=== PATIENT | female | born 1975 | race Caucasian/White ===

== ENCOUNTER → 2018-02-22 | Outpatient (CLI) | payer OTHER ==
[~2018-02-22] VITALS: Ht 167.6 cm; Wt 104.3 kg
[~2018-02-22] MED LIST: ALEVE220 MG PO; IBUPROFEN 800800 M1 PO; LEXAPRO 10 MG T10 M1 PO; OMEPRAZOLE40 MG PO; PRINIVIL10 MG PO; UNICOMPLEX M TA1 TA1 PO; ZANAFLEX4 MG PO
--- NOTE | ~2018-02-22 | HPC ---
[facility] [place] [address] PAIN MANAGEMENT CONSULTATION Name: GERTRUDIS OTERO Room #: REG [facility].#: [id number] Admission: 02/22/18 Attend Phys: Nahid Cool MD Discharge: Date of : 73 Report #: [id number] THIS REPORT FOR: //name// CC: Octavio Cool DATE OF SERVICE: 02/22/2018 CHIEF COMPLAINT: Acute low back pain with radiation in the right L5-S1 distribution. HISTORY OF PRESENT ILLNESS: The patient is a pleasant 42-year-old who has had chronic back pain off and on over the course of the last several years. She has had a new episode of pain consistent with radiculopathy radiating into the right leg. She attempted with some exercise and used some Zanaflex with limited improvement. Ultimately, the pain became so severe that she was allowed to have an MRI, which demonstrated an acutely herniated disk at L5-S1. Her symptoms are primarily right-sided; however, the disk appears to be a bit more to the left. This is not completely atypical and we have seen this on several occasions in the past. She has responded to epidural injection I think in order to improve her mobility and exercise capacity. At this stage, an epidural injection would be an appropriate step. MEDICATIONS: Citalopram, omeprazole, multivitamins, naproxen and ibuprofen are both taken intermittently and were discussed, lisinopril and tizanidine. ALLERGIES: None. PAST MEDICAL HISTORY: Significant for recent vaginal hysterectomy, bladder lift and an AP repair in 09/[address] Enrrique Dia. She has had a previous lithotripsy, tonsillectomy and adenoidectomy. SOCIAL HISTORY: She is . She is currently using e-cigarettes. She was counseled. She denies use of alcohol. PHYSICAL EXAMINATION: She has lost 50 pounds and is now down to 230. Her BMI is 37.1. She and her have dieted together and have used exercises, modalities for this weight loss. Blood pressure 109/64, heart rate 60, respirations 16. She moves from sitting to standing position, ambulates without antalgic features. Range of motion of the lumbar spine is adequate and flexion increases pain in the hip and leg and with extension. Straight leg raising reproduces some mild symptoms of tightness and stretching in the right, left is negative. Deep tendon reflexes are 2+ at knee. She has an asymmetry with absent ankle jerk reflex on the right in comparison to the left. Sensation diminished with a tingling sensation in the right L5-S1 distribution. [address] [address] PAIN MANAGEMENT CONSULTATION Name: GERTRUDIS OTERO Room #: [facility].#: [id number] Admission: 02/22/18 Attend Phys: Nahid Cool MD Discharge: Date of : 73 Report #: [id number] MRI shows evidence of the L5-S1 herniated disk. IMPRESSION: Lumbar radiculopathy, L5-S1 distribution on the right. Herniated nucleus pulposus at L5-S1 with left-sided involvement noted on the MRI. PLAN: I think it is appropriate to perform an epidural steroid injection under fluoroscopic guidance. We will seek preauthorization and try and get this procedure done within the next couple of days given the difficulty with weather in the [place]. At this time, it would be appropriate to try and get the injection today and we are making efforts to get preauthorization while here in the office. By: 1412 1438 Nahid Cool MD /nt
[2018-02-22 13:14] VITALS: BP 109/64
== END ==
LOC: PAIN 00:30
DX: M54.16 Radiculopathy, lumbar region (principal)

== ENCOUNTER → 2018-02-25 | Outpatient (CLI) | payer OTHER ==
[~2018-02-25] VITALS: Ht 167.6 cm; Wt 106.9 kg
[~2018-02-25] MED LIST changes: +KEFLEX500 M1 PO
--- NOTE | ~2018-02-25 | HPC ---
[address] [address] PAIN MANAGEMENT CONSULTATION Name: GERTRUDIS OTERO [id number] Admission: 02/25/18 Attend Phys: Nahid Cool MD Discharge: Date of : 73 Report #: [id number] THIS REPORT FOR: //name// CC: Octavio Cool DATE OF SERVICE: 02/25/2018 Followup visits to perform lumbar epidural injection. The patient was seen in the pain clinic on 02/22/2018. She has a herniated nucleus pulposus at L5-S1 with lumbar radiculopathy following an L5-S1 distribution on the right. We attempted to preauthorize her for an epidural injection on her visit of 02/22/2018, but were unable to do so. Unfortunately, the patient had to leave the clinic and returned again today for the injection now that we have received insurance go ahead. Inefficient but we will get it done today. She continues to have the similar presentation as she did 3 days ago. There have been no significant changes. She has had some burning on urination, but is afebrile. Prophylactically, she was started on an antibiotic. I do not believe this is a contraindication proceeding with her injection today, particularly in light of her delay of 3 days ago. IMPRESSION: Chronic low back pain with recurrence of radiculopathy following a right L5-S1 distribution: Herniated nucleus pulposus, L5-S1. PROCEDURE: Epidural steroid injection under fluoroscopic guidance. PROCEDURE NOTE: After both written and informed consent to include risk of spinal cord damage, increased pain, weakness and dural puncture, the patient was taken to the fluoroscopy suite, placed in the prone position. After sterile prep and drape, a skin wheal with lidocaine was raised. A 22-gauge epidural Tuohy needle was inserted in the midline at L5-S1 with good loss to resistance. Negative aspiration for cerebrospinal fluid or blood was noted. Then 1 mL of Omnipaque under biplanar fluoroscopy showed good spread within the epidural space. This was followed with 80 mg of triamcinolone plus 3 mL of 0.5% lidocaine was then injected to flush the needle; it was removed. The patient was monitored for an appropriate period of time and discharged in good and stable condition. There were no complications. She tolerated the procedure well. <ELECTRONICALLY SIGNED> By: Nahid Cool MD 02/25/18 1538 [id number] Nahid Cool MD /nt
[2018-02-25 11:04] VITALS: BP 114/78
== END | disposition home or self-care (01) ==
LOC: PAIN 09:24
DX: M51.16 Intervertebral disc disorders with radiculopathy, lumbar region (principal); G89.29 Other chronic pain; F17.210 Nicotine dependence, cigarettes, uncomplicated; Z91.040 Latex allergy status; Z79.899 Other long term (current) drug therapy

== ENCOUNTER → 2018-03-18 | Outpatient (CLI) | payer OTHER ==
[~2018-03-18] VITALS: Ht 167.6 cm; Wt 102.5 kg
--- NOTE | ~2018-03-18 | HPC ---
[facility] [place] [address] PAIN MANAGEMENT CONSULTATION Name: GERTRUDIS OTERO Room #: REG [facility].#: [id number] Admission: 03/18/18 Attend Phys: Nahid Cool MD Discharge: Date of : 73 Report #: [id number] THIS REPORT FOR: //name// CC: Octavio Cool DATE OF SERVICE: 03/18/2018 Followup visit for chronic low back pain with radiculopathy. The patient returns to pain clinic today with an excellent response to her epidural injection. She reports that the injection at L5-S1 has given her "push start" in her exercise program and her pain is down to a 4. Relief is over 50%. Pain in her low back is less and the pain in her right leg to her toes has significantly improved as well. She reports less weakness and better able to perform therapy. She has had no falls. Given her very favorable response to epidural injection, I think a second injection would be warranted given the fact that she still has pain that limits her activity after a certain period of time. Hopefully, a second injection would be all that would be necessary. She would like to perform this before the end of the holiday season. PHYSICAL EXAMINATION: She is pleasant, alert and oriented. No signs of overmedication, depression or anxiety. She moves from sitting to standing position. Still has some slight antalgic features to her gait. Her blood pressure 120/77, heart rate 81, respirations 16, BMI 36.5. Examination of the right leg reveals positive symptoms in the supine position with straight leg raising. IMPRESSION: Lumbar radiculopathy secondary to herniated nucleus pulposus, L5-S1. RECOMMENDATIONS: Given her excellent response I think we may be able to continue providing her with relief and prevent the need for surgery if she continues to make progress. We have asked for a repeat epidural injection to be preauthorized for her to this goal and plan to have her back in the clinic in the next few days. By: 1532 [id number] Nahid Cool MD /nt
[2018-03-18 10:51] VITALS: BP 120/77
== END ==
LOC: PAIN 08:43
DX: M54.16 Radiculopathy, lumbar region (principal); Z79.899 Other long term (current) drug therapy

== ENCOUNTER → 2018-03-26 | Outpatient (CLI) | payer OTHER ==
[~2018-03-26] VITALS: Ht 167.6 cm; Wt 102.2 kg
[2018-03-26 10:44] VITALS: BP 108/71
--- NOTE | 2018-03-26 10:59 | NUR ---
Pain Clinic Assessment: 1. History of Osteoarthritis: Not Applicable History of Rheumatoid Arthritis: Not Applicable 2. Height: 5 ft. 6 in. 167.6 cm. Weight: 225.4 lb. oz. 102.241 kg. Patient's BMI: 36.4 3. Vital Signs: BP: 108/71 Pulse: 100 Resp: 14 Temp: 02 Sat: 97 ECG Mon: 4. Pain Intensity: 5 5. Fall Risk: Dizziness: N Needs help standing or walking: N Fallen in the last 3 months: N Fall risk comments: 6. Patient on Blood Thinner: None 7. History of Hypertension: Y 8. Opioid Therapy greater than 6 weeks: N Opiate Contract Signed: 9. Risk Assessment Tool Provided: MOD-5 10. Functional Assessment Tool: 11. Recreational Drug Use: Never Drug Type: Tobacco Use: Current Every Day Smoker Tobacco Type: Amount or Packs/day: How Many Years: Alcohol Use: Yes Frequency: Quant:
--- NOTE | 2018-03-31 11:18 | HPC ---
[facility] [place] [address] PAIN MANAGEMENT CONSULTATION Name: GERTRUDIS OTERO Room #: REG [facility].#: [id number] Admission: 03/26/18 Attend Phys: Nahid Cool MD Discharge: Date of : 73 Report #: [id number] THIS REPORT FOR: //name// CC: Octavio Cool DATE OF SERVICE: 03/26/2018 Followup visit for herniated nucleus pulposus, L5-S1 to the right with right L5-S1 lumbar radiculopathy. The patient was seen just 8 days ago for followup. She had had over 50% relief from a single epidural injection performed on 02/25/2018. Given her ongoing pain and the difficulty she has in pushing through it for exercise necessary for weight loss, we have elected to repeat another injection today hoping for further improvement. I spent additional time today with the model describing her procedure and what we hoped would happen with a herniated disk to provide relief over time. She would like to avoid surgery. PHYSICAL EXAMINATION: Unchanged from 1 week ago. IMPRESSION: Lumbar radiculopathy secondary to herniated nucleus pulposus, L5-S1. Right L5-S1 radicular symptoms. PROCEDURE: L5-S1 right paramedian epidural steroid injection under fluoroscopic guidance. DESCRIPTION OF PROCEDURE: She was taken to the fluoroscopic suite and placed prone. The skin was prepped with ChloraPrep. Skin anesthetized over the L5-S1 interspace. A 20-gauge Tuohy epidural needle 4-inch was advanced into the epidural space on the first attempt using loss of resistance. One mL of Isovue was injected. Good spread of dye observed into the epidural space, followed by 3 mL of 0.5% lidocaine mixed with 80 mg of triamcinolone. She tolerated the procedure well, was observed for 45 minutes and discharged with a followup plan in 1-2 months. If she continues to do well, I have told her I will cancel her upcoming appointment. <ELECTRONICALLY SIGNED> By: Nahid Cool MD 03/31/18 1118 [id number] [id number] Nahid Cool MD /nt
== END | disposition home or self-care (01) ==
LOC: PAIN 08:10
DX: M51.16 Intervertebral disc disorders with radiculopathy, lumbar region (principal); F17.210 Nicotine dependence, cigarettes, uncomplicated; Z91.040 Latex allergy status; Z79.899 Other long term (current) drug therapy

== ENCOUNTER → 2019-03-03 | Outpatient (CLI) | payer OTHER ==
[~2019-03-03] VITALS: Ht 167.6 cm; Wt 110.3 kg
[~2019-03-03] MED LIST changes: +ARMOUR THYROID15 M1 PO; +VYVANSE50 MG PO
--- NOTE | ~2019-03-03 | HPC ---
[facility] [place] [address] PAIN MANAGEMENT CONSULTATION Name: GERTRUDIS OTERO Room #: REG [facility].#: [id number] Admission: 03/03/19 Attend Phys: Nahid Cool MD Discharge: Date of : 73 Report #: [id number] THIS REPORT FOR: //name// CC: DEYSI AGARWAL Physician staff Nahid Cool DATE OF SERVICE: 03/03/2019 CHIEF COMPLAINT: Low back pain with radiation into both legs. HISTORY: The patient is a pleasant 43-year-old who I have provided with epidural injections on several occasions. She has responded favorably to these injections, most recent was 1 year ago. She was doing well for almost 6 months. In the summer when she was having a garage sale and doing yard work, the pain began to return, has gradually increased to the point now where she would like an injection. Her pain intensity is a 5-6/10. She describes it as worse with walking, standing and sitting. It is associated with some tingling and numbness of the legs. MEDICATIONS: Lisinopril, Thyroid, Lexapro, omeprazole, multivitamins, naproxen, ibuprofen, lisinopril, tizanidine. ALLERGIES: LATEX. PAST MEDICAL HISTORY: Positive for peptic ulcer. This is particularly worrisome given the fact that she is taking 2400 mg of ibuprofen daily. She was cautioned. She also has high blood pressure history and kidney stones. I would prefer to see her off of an NSAID. PHYSICAL EXAMINATION: GENERAL: She is pleasant 43-year-old female, alert and oriented. VITAL SIGNS: Blood pressure 112/70, heart rate 73, respirations 16. She has a BMI of 39.3. She moves independently from sitting to standing position. Gait is nonantalgic. She has tenderness across her low back. Positive straight leg raising bilaterally. A distant MRI shows an L5-S1 left disk space focal herniation. She has carefully continued to avoid activities to stress this area and has avoided surgery. We talked about the importance of rehabilitative approach including daily exercise and walking program, which I have reinforced. I also talked about the importance of cessation of tobacco. She continues to smoke e-cigarettes 3 mg per day. [address] [address] PAIN MANAGEMENT CONSULTATION Name: GERTRUDIS OTERO Room #: REG [facility].#: [id number] Admission: 03/03/19 Attend Phys: Nahid Cool MD Discharge: Date of : 73 Report #: [id number] IMPRESSION: Chronic low back pain with radiculopathy. RECOMMENDATIONS: Epidural steroid injection under fluoroscopic guidance, L5-S1 given the previous response of 80% improvement for over 5 months. Preauthorization will be sought before we proceed with the injection. She is an excellent candidate. By: 1323 [id number] Nahid Cool MD /nt
[2019-03-03 10:28] VITALS: BP 112/70
--- NOTE | 2019-03-03 10:50 | NUR ---
Pain Clinic Assessment: 1. History of Osteoarthritis: Not Applicable History of Rheumatoid Arthritis: Not Applicable 2. Height: 5 ft. 6 in. 167.6 cm. Weight: 243.2 lb. oz. 110.315 kg. Patient's BMI: 39.3 3. Vital Signs: BP: 112/70 Pulse: 73 Resp: 16 Temp: 02 Sat: 98 ECG Mon: 4. Pain Intensity: 5-6 5. Fall Risk: Dizziness: N Needs help standing or walking: N Fallen in the last 3 months: Y Fall risk comments: 6. Patient on Blood Thinner: None 7. History of Hypertension: Y 8. Opioid Therapy greater than 6 weeks: N Opiate Contract Signed: 9. Risk Assessment Tool Provided: MODERATE 08/03 10. Functional Assessment Tool: 11. Recreational Drug Use: Never Drug Type: Tobacco Use: Current Every Day Smoker Tobacco Type: E-Cigarettes Amount or Packs/day: 3 MG/DAY How Many Years: Alcohol Use: Yes Frequency: Special Occasions Quant: 1
== END ==
LOC: PAIN 06:51
DX: M54.16 Radiculopathy, lumbar region (principal); Z79.899 Other long term (current) drug therapy; Z91.040 Latex allergy status

== ENCOUNTER → 2019-03-07 | Outpatient (CLI) | payer OTHER ==
[~2019-03-07] VITALS: Ht 167.6 cm; Wt 109.9 kg
--- NOTE | ~2019-03-07 | P ---
[facility] [place] [address] PROCEDURE REPORT Name: GERTRUDIS OTERO Room #: REG [facility].#: [id number] Admission: 03/07/19 Attend Phys: Nahid Cool MD Discharge: Date of : 73 Report #: [id number] THIS REPORT FOR: //name// CC: DEYSI AGARWAL Physician staff Nahid Cool DATE OF SERVICE: 03/07/2019 DIAGNOSES: Low back pain with bilateral radiculopathy. PROCEDURE: Lumbar epidural steroid injection in L5-S1 under fluoroscopic guidance. INDICATIONS FOR PROCEDURE: The patient has recurring and longstanding low back pain with radiculopathy and has responded very favorably to epidural injection. She was last seen in preparation for the injection on 03/03/2019. Please refer to that dictation. There have been no changes in her condition or health history since that visit. We will proceed today. Informed consent provided and signed prior to the procedure. DETAILS OF PROCEDURE: The patient was taken to fluoroscopic suite, placed prone, skin prepped with ChloraPrep. Skin anesthetized over the L5-S1 interspace to the right of midline. A 20-gauge Tuohy epidural needle advanced on the first attempt in the epidural space with loss of resistance. There was no blood nor CSF aspirated and 1 mL of Omnipaque was injected to demonstrate an excellent epidurogram, it was then followed by 3 mL of 0.5% lidocaine mixed with 80 mg of triamcinolone. She tolerated the procedure well and there were no complications. She was taken to recovery room in good condition and followup will be as needed. By: 0921 1412 Nahid Cool MD /nt
[2019-03-07 08:55] VITALS: BP 104/71
--- NOTE | 2019-03-07 09:03 | NUR ---
Pain Clinic Assessment: 1. History of Osteoarthritis: B/L KNEES B/L HANDS B/L ANKLES History of Rheumatoid Arthritis: Not Applicable 2. Height: 5 ft. 6 in. 167.6 cm. Weight: 242.2 lb. oz. 109.861 kg. Patient's BMI: 39.1 3. Vital Signs: BP: 104/71 Pulse: 90 Resp: 16 Temp: 02 Sat: 98 ECG Mon: 4. Pain Intensity: 6-7 TODAY 5. Fall Risk: Dizziness: N Needs help standing or walking: N Fallen in the last 3 months: N Fall risk comments: 6. Patient on Blood Thinner: None 7. History of Hypertension: Y 8. Opioid Therapy greater than 6 weeks: N Opiate Contract Signed: 9. Risk Assessment Tool Provided: MODERATE 08/03 10. Functional Assessment Tool: / 11. Recreational Drug Use: Never Drug Type: Tobacco Use: Current Every Day Smoker Tobacco Type: E-Cigarettes Amount or Packs/day: How Many Years: Alcohol Use: Yes Frequency: Special Occasions Quant:
== END | disposition home or self-care (01) ==
LOC: PAIN 06:44
DX: M54.16 Radiculopathy, lumbar region (principal); F17.210 Nicotine dependence, cigarettes, uncomplicated; Z88.8 Allergy status to other drugs, medicaments and biological substances; Z91.040 Latex allergy status; Z79.899 Other long term (current) drug therapy

== ENCOUNTER → 2019-04-04 | Outpatient (CLI) | payer OTHER ==
[~2019-04-04] VITALS: Ht 167.6 cm; Wt 108.6 kg
[~2019-04-04] MED LIST changes: +PROGESTERONE100 MG PO
--- NOTE | ~2019-04-04 | HPC ---
[facility] [place] [address] [place] [address] PAIN MANAGEMENT CONSULTATION Name: GERTRUDIS OTERO Room #: REG [facility].#: [id number] Admission: 04/04/19 Attend Phys: Nahid Cool MD Discharge: Date of : 73 Report #: [id number] THIS REPORT FOR: //name// CC: Dr. Kareem AGARWAL Physician staff Nahid Cool DATE OF SERVICE: 04/04/2019 Followup visit for lumbar radiculopathy. I saw the patient last about 1 month ago for low back pain with bilateral radiculopathy. She received an epidural injection with 50% improvement, which has been sustained over the course of the last month. She would like another injection. Pain is in her left buttock. She has been much more active since her last injection and would like to increase her activity to help with weight loss. Her BMI is now up to 38.7. She complains of numbness in her right leg all the way to the foot following an L5 dermatomal distribution. She also has some pain down the posterior aspect of her leg following an S1. PHYSICAL EXAMINATION: VITAL SIGNS: She is 5 feet 6 inches, 239 pounds with a BMI of 38.7. Blood pressure 111/76, heart rate 98, respirations 16, O2 sat 98. MUSCULOSKELETAL: She moves independently from sitting to standing position, ambulates without difficulty. There is a positive straight leg raising on the right and left. It is worse on the right with pain radiating all the way to the foot. Strength is normal. No loss of sensation at this time, although she complains of intermittent numbness in the right foot. She does have an asymmetrical reflex exam. All reflexes are 1 to 2+ except for the S1 reflex at the right ankle, which is barely positive. This would suggest an S1 radiculopathy. IMPRESSION: Lumbar radiculopathy, L5-S1. RECOMMENDATIONS: Repeat L5-S1 epidural injection under fluoroscopic guidance. We will seek preauthorization for the injection and see her back in the pain clinic as soon as possible. By: [id number] [id number] Nahid Cool MD /nt
[2019-04-04 14:02] VITALS: BP 111/76
--- NOTE | 2019-04-04 14:16 | NUR ---
Pain Clinic Assessment: 1. History of Osteoarthritis: B/L KNEES B/L HANDS B/L ANKLES History of Rheumatoid Arthritis: DENIES 2. Height: 5 ft. 6 in. 167.6 cm. Weight: 239.4 lb. oz. 108.591 kg. Patient's BMI: 38.7 3. Vital Signs: BP: 111/76 Pulse: 98 Resp: 16 Temp: 02 Sat: 98 ECG Mon: 4. Pain Intensity: 4 5. Fall Risk: Dizziness: N Needs help standing or walking: N Fallen in the last 3 months: N Fall risk comments: 6. Patient on Blood Thinner: None 7. History of Hypertension: Y 8. Opioid Therapy greater than 6 weeks: N Opiate Contract Signed: 9. Risk Assessment Tool Provided: MODERATE 08/03 10. Functional Assessment Tool: 11. Recreational Drug Use: Never Drug Type: Tobacco Use: Current Every Day Smoker Tobacco Type: E-Cigarettes Amount or Packs/day: How Many Years: Alcohol Use: Yes Frequency: Monthly Quant: 1-2 TIMES A MONTH
== END ==
LOC: PAIN 06:58
DX: M47.816 Spondylosis without myelopathy or radiculopathy, lumbar region (principal)

== ENCOUNTER → 2019-10-20 | Outpatient (CLI) | payer BC ==
[~2019-10-20] VITALS: Ht 167.6 cm; Wt 97.5 kg
[~2019-10-20] MED LIST changes: +ADDERALL XR 3030 MG PO
--- NOTE | ~2019-10-20 | HPC ---
[facility] [place] [address] PAIN MANAGEMENT CONSULTATION Name: GERTRUDIS OTERO Room #: REG [facility].#: [id number] Admission: 10/20/19 Attend Phys: Nahid Cool MD Discharge: Date of : 73 Report #: [id number] THIS REPORT FOR: cc: Evan Oquendo,Evan Caballero,Nahid Díaz MD ~ CC: Evan Cool DATE OF SERVICE: 10/20/2019 Followup visit for lumbar radiculopathy, herniated disk, L5-S1. SUBJECTIVE: The patient is a joaquín 43-year-old who came to the pain clinic today for an epidural injection. She has been experiencing increasing pain in her right leg. She has a herniated disk at L5-S1. Her MRI from 2 years ago shows extruded fragment at that time was on the left side. There is still be contributing to her symptoms as a classic L5-S1 symptoms radiating down through the buttock and into the calf and ankle. Pain is worse with standing and walking, lifting and weightbearing. She has been trying to do some exercise and I have encouraged her to continue to do the exercises, which she learned in physical therapy that does help, but she has noticed a significant improvement for months at a time following an epidural injection. Her last injection was performed over 6 months ago. MEDICATIONS: Adderall, Vyvanse, Lexapro, multivitamins, Prinivil, tizanidine. ALLERGIES: LATEX. PHYSICAL EXAMINATION: GENERAL: Pleasant 43-year-old. She is 5 feet 6 inches, BMI is 34.7. She moves independently from sitting to standing. Her gait is mildly antalgic. CHEST: Clear. CARDIAC: Rhythm is regular. BACK: Mildly tender across the lumbosacral segment. She has pain with back extension, which reproduces pain into the hip. Straight leg raising on the right reproduces pain following an L5-S1 distribution. She also experiences numbness and tingling. IMPRESSION: Herniated nucleus pulposus, L5-S1 chronic, recurrent lumbar radiculopathy. Therapies would include continuing exercise. Periodic epidural injections. If necessary, I can refer her on to a surgeon, but she like to avoid surgery. These can improve over a period of time, so willing to continue to provide [address] [address] PAIN MANAGEMENT CONSULTATION Name: SHANNAGERTRUDISZainab SO Room #: REG [facility].#: [id number] Admission: 10/20/19 Attend Phys: Nahid Cool MD Discharge: Date of : 73 Report #: [id number] intermittent pain relief with epidural injections to allow her to see if she can get through this. Weight loss would be of help as well. PROCEDURE: After informed consent, she was taken to fluoroscopic suite, placed prone, skin prepped with ChloraPrep. Skin anesthetized over the L5-S1 interspace. A 20-gauge Tuohy epidural needle advanced first attempt in the epidural space to the right of midline. Good loss of resistance was obtained. I injected 1 mL of Omnipaque. Excellent epidurogram was achieved. It was followed by 3 mL of 0.5% lidocaine mixed with 80 mg of triamcinolone. She tolerated the procedure well. There were no complications. She was taken to recovery room and observed for an hour and then discharged. Followup visit planned on an as needed basis. Repeat injections we provided only as necessary and at one month interval would be as close as I would recommend. No medications, no opioids ordered for her pain. By: [id number] Nahid Cool MD /nt
[2019-10-20 14:51] VITALS: BP 126/83
--- NOTE | 2019-10-20 14:55 | NUR ---
Pain Clinic Assessment: 1. History of Osteoarthritis: B/L KNEES B/L HANDS B/L ANKLES History of Rheumatoid Arthritis: DENIES 2. Height: 5 ft. 6 in. 167.6 cm. Weight: 215.0 lb. oz. 97.524 kg. Patient's BMI: 34.7 3. Vital Signs: BP: 126/83 Pulse: 86 Resp: 18 Temp: 02 Sat: 97 ECG Mon: 4. Pain Intensity: 5 5. Fall Risk: Dizziness: N Needs help standing or walking: N Fallen in the last 3 months: N Fall risk comments: 6. Patient on Blood Thinner: None 7. History of Hypertension: Y 8. Opioid Therapy greater than 6 weeks: N Opiate Contract Signed: 9. Risk Assessment Tool Provided: MODERATE 08/03 10. Functional Assessment Tool: 11. Recreational Drug Use: Never Drug Type: Tobacco Use: Current Every Day Smoker Tobacco Type: Cigarettes Amount or Packs/day: How Many Years: Alcohol Use: Yes Frequency: Quant:
== END | disposition home or self-care (01) ==
LOC: PAIN 07:14
PROVIDERS: ATTEND Anesthesiology Pain Medicine
DX: M51.16 Intervertebral disc disorders with radiculopathy, lumbar region (principal); G89.29 Other chronic pain; F17.210 Nicotine dependence, cigarettes, uncomplicated; Z98.890 Other specified postprocedural states; Z79.899 Other long term (current) drug therapy; Z91.040 Latex allergy status

== ENCOUNTER → 2020-02-27 | Outpatient (CLI) | payer BC ==
[~2020-02-27] VITALS: Ht 167.6 cm; Wt 95.7 kg
[~2020-02-27] MED LIST changes: +ADDERALL 20 MG20 MG PO; +ADVIL200 M1 PO; +AMBIEN 10 MG TA10 MG PO
[2020-02-27 15:00] VITALS: BP 128/86
--- NOTE | 2020-02-27 15:07 | NUR ---
[facility] Assessment: 1. History of Osteoarthritis: B/L KNEES B/L HANDS B/L ANKLES History of Rheumatoid Arthritis: DENIES 2. Height: 5 ft. 6 in. 167.6 cm. Weight: 211.0 lb. oz. 95.709 kg. Patient's BMI: 34.1 3. Vital Signs: BP: 128/86 Pulse: 85 Resp: 16 Temp: 02 Sat: 99 ECG Mon: 4. Pain Intensity: 6-7 5. Fall Risk: Dizziness: N Needs help standing or walking: N Fallen in the last 3 months: N Fall risk comments: 6. Patient on Blood Thinner: None 7. History of Hypertension: Y 8. Opioid Therapy greater than 6 weeks: N Opiate Contract Signed: 9. Risk Assessment Tool Provided: MODERATE 7 10. Functional Assessment Tool: 66/70 11. Recreational Drug Use: Never Drug Type: Tobacco Use: Current Every Day Smoker Tobacco Type: E-Cigarettes Amount or Packs/day: How Many Years: Alcohol Use: Yes Frequency: Monthly Quant: 2
== END ==
LOC: PAIN 06:54
PROVIDERS: ATTEND Anesthesiology Pain Medicine
DX: M47.817 Spondylosis without myelopathy or radiculopathy, lumbosacral region (principal); G89.29 Other chronic pain; M54.16 Radiculopathy, lumbar region; Z88.8 Allergy status to other drugs, medicaments and biological substances; Z79.899 Other long term (current) drug therapy